=== PATIENT | female | born 1995 | race American Indian/Alaskan Native ===

== ENCOUNTER 2018-02-28 17:42 | Emergency (ER) | payer SELFPAY ==
[2018-02-28 18:41] LABS: Hematocrit 38.5 % (30.3-42.9); Hemoglobin 12.4 gm/dl (10.1-14.3); Mean Corpuscular HGB Conc 32 % (30-34); Mean Corpuscular Volume 82 fl (79-97); Platelet Count 256 K/mm3 (140-440); Red Blood Count 4.69 M/mm3 (3.65-5.03); Red Cell Distribution Width 14.2 % (13.2-15.2)
[2018-02-28 18:56] LABS: BUN/Creatinine Ratio 18; Blood Urea Nitrogen 9 mg/dL (7-17); Calcium 8.7 mg/dL (8.4-10.2); Hemolysis Index 26
--- NOTE | 2018-02-28 19:13 | Emergency Department Report ---
HPI - General Chief Complaint: Neuro Symptoms/Deficit Time Seen by Provider: 02/28/18 18:36 - HPI HPI: 22-year-old female presents to the emergency department via EMS from home with the patient was found unresponsive and "twitching" in the bathtub. They then helped her out into the bedroom where she laid down and was talking before she had another unresponsive episode with her eyes rolled back and her head turned towards the side. Patient says that she does not remember anything until she was in the ambulance on the way to the emergency department. She is currently awake and alert and oriented. Patient has a history of anxiety, gallstones, and was diagnosed with a conversion disorder on February 02, in [place], after having some similar unresponsive and seizure-like episodes. The patient just moved here from [place] in the past 24-48 hours. She denies any tobacco or illicit drug use. She does not have any local physi cians. ED Past Medical Hx - Social History Smoking Status: Former Smoker Substance Use Type: None ED Review of Systems ROS: Stated complaint: SEIZURES Other details as noted in HPI Comment: All other systems reviewed and negative Constitutional: denies: chills, fever Eyes: denies: eye pain, vision change ENT: denies: ear pain, throat pain Respiratory: denies: cough, shortness of breath Cardiovascular: syncope. denies: chest pain Gastrointestinal: denies: abdominal pain, vomiting Genitourinary: denies: dysuria, discharge Musculoskeletal: denies: back pain, arthralgia Skin: denies: rash, lesions Neurological: other (unresponsive episode). denies: vertigo Physical Exam - Physical Exam Vital Signs: Vital Signs 02/28/18 02/28/18 17:48 19:03 Temperature 98.1 F 98.6 F Pulse Rate 93 H 105 H Respiratory 18 18 Rate Blood Pressure 118/72 Blood Pressure 116/74 [Left] O2 Sat by Pulse 98 97 Oximetry Physical Exam: GENERAL: The patient is well-developed well-nourished. HEENT: Normocephalic. Atraumatic. Patient has moist mucous membranes. EYES: Extraocular motions are intact. Pupils are equal and reactive to light bilaterally. No nystagmus. NECK: Supple. Trachea is midline. CHEST/LUNGS: Clear to auscultation. There is no respiratory distress noted. HEART/CARDIOVASCULAR: Regular. There is no tachycardia. There is no obvious murmur. ABDOMEN: Abdomen is soft, nontender. Patient has normal bowel sounds. There is no abdominal distention. SKIN: Skin is warm and dry. NEURO: The patient is awake, alert, and oriented. The patient is cooperative. The patient has no focal neurologic deficits. The patient has normal speech. Cranial nerves II through XII grossly intact. No facial asymmetry. No pronator drift or dysmetria. MUSCULOSKELETAL: There is no tenderness or deformity. There is no limitation range of motion. There is no evidence of acute injury. ED Course Vital Signs 02/28/18 02/28/18 17:48 19:03 Temperature 98.1 F 98.6 F Pulse Rate 93 H 105 H Respiratory 18 18 Rate Blood Pressure 118/72 Blood Pressure 116/74 [Left] O2 Sat by Pulse 98 97 Oximetry ED Medical Decision Making - Lab Data Result diagrams: 02/28/18 18:25 02/28/18 18:25 - Medical Decision Making Patient presents after having one or 2 unresponsive episodes at home that were witnessed with some seizure-like activity. Since being in the emergency department the patient has remained awake, alert, oriented and cooperative. There has been no further episodes of passing out, unresponsiveness or seizure- like activity. Patient's labs were unremarkable including a complete blood count, metabolic panel, TSH, urinalysis, troponin and urine drug screen. Vital signs stable throughout her ED course. The patient was reevaluated multiple times over more than 3 hours and has remained stable. Since the patient has remained awake and alert without any deficits or any further syncopal or seizure episodes, I did not feel that the patient required any CT imaging of the head at this time. She is happy, active and playful. She has been given referrals for primary care and neurology. At her request she was also given a referral for a general surgeon as she has some history of gallstones and may need elective outpatient cholecystectomy. She will return to the ER with any r ecurrence of her symptoms or with any acute distress. - Differential Diagnosis seizure, hypoglycemia, electrolyte abnormalities, conversion disorder Critical Care Time: No Critical care attestation.: If time is entered above; I have spent that time in minutes in the direct care of this critically ill patient, excluding procedure time. ED Disposition Clinical Impression: Unresponsive episode Disposition: DC-01 TO HOME OR SELFCARE Is pt being admited?: No Condition: Stable Instructions: Syncope (ED) Additional Instructions: You were seen today because of an unresponsive episode in which you appeared to pass out and have some seizure-like activity. There has been no recurrence of this since you have been in the emergency department. Please follow up with a primary care physician in the next few days. I am also giving you a few different for local neurologists. Per your request, I will give you a referral for a local general surgeon, Dr. Rodriguez, to follow up regarding your gallbladder history. Return to the emergency Department with any worsening or recurrence of your symptoms, and with any acute distress. Referrals: PRIMARY CARE, [Primary Care Provider] - 3-5 Days MENDEZ PUENTE MD [Staff Physician] - 3-5 Days DOMINIC RODRIGUEZ MD [Staff Physician] - 3-5 Days [facility] [Outside] - 3-5 Days FERNY CARRINGTON MD [Referring] - 3-5 Days ABDIFATAH BARKER MD [Staff Physician] - 3-5 Days Time of Disposition: 21:12
[2018-02-28 20:55] LABS: Bilirubin,Urine NEG (Negative); Blood,Urine LG (Negative); Color,Urine Yellow (Yellow); Mucus,Urine FEW /HPF; Protein,Urine <15 mg/dL mg/dL (Negative)
[2018-02-28 21:14] LABS: Amphetamine Screen,Urine PRESUMPTIVE NEGATIVE; Benzodiazepines Screen,Urine PRESUMPTIVE NEGATIVE; Cannabinoid Screen,Urine PRESUMPTIVE NEGATIVE; Cocaine Screen,Urine PRESUMPTIVE NEGATIVE; Methadone Screen,Urine PRESUMPTIVE NEGATIVE; Opiate Screen,Urine PRESUMPTIVE NEGATIVE
[2018-02-28 21:52] VITALS: BP 122/64
== END 2018-02-28 21:15 | disposition home or self-care (01) ==
LOC: ED 17:42
DX: R46.4 Slowness and poor responsiveness (principal); Z87.891 Personal history of nicotine dependence
CPT/HCPCS: 36415; 80048; 80307; 81001; 82550; 84443; 84484; 85027